=== PATIENT | male | born 1935 | race Caucasian/White ===

== ENCOUNTER → 2018-09-15 | Outpatient (CLI) | payer OTHER | LOC: CARD 11:03 | PROVIDERS: ATTEND Internal Medicine Cardiovascular Disease | DX: I48.0 Paroxysmal atrial fibrillation (principal); I10 Essential (primary) hypertension; E66.9 Obesity, unspecified | CPT/HCPCS: 93306 ==

== ENCOUNTER 2018-09-24 09:10 | Day surgery (SDC) | payer OTHER ==
[2018-09-24] VITALS (10 sets, daily range): BP systolic 145–192; BP diastolic 98–118
[~2018-09-24] VITALS: Ht 172.7 cm; Wt 102.5 kg
[2018-09-24] MEDS ORDERED: NS IV 1000 ML 1,000 ML ONE (09:32)
[2018-09-24] MEDS ORDERED: LIDOCAINE 1% INJ 20 ML 20 ML VIAL ONE (09:32)
[2018-09-24] MEDS ORDERED: HEParin (CATH LAB) 2,000 ML IV ONE (09:32)
[2018-09-24 10:06] LABS: HEMOGLOBIN 15.4 G/DL (13.3-17.7); RED BLOOD COUNT 4.86 10^6/uL (4.35-5.85); RED CELL DISTRIBUTION WIDTH 14.3 % (10.0-14.5); WHITE BLOOD COUNT 7.5 10^3/uL (4.3-11.0)
--- NOTE | 2018-09-24 10:14 | Cardiac Procedure Note-CS/ASA ---
Pre-Procedure Note Pre-Op Procedure Note H&P Reviewed The H&P was reviewed, patient examined and no changes noted. Date H&P Reviewed: Sep 24, 2018 Time H&P Reviewed: 10:13 Conscious Sedation Pre-Proced Time 10:13 ASA Score 3 For ASA 3 and 4: Consider anesthesia and medical clearance. Also, for patients with a history of failed moderate sedation consider anesthesia. Airway Lungs Heart ASA score ASA 1: a normal healthy patient ASA 2: a patient with a mild systemic disease (mid diabetes, controlled hypertension, obesity x ASA 3: a patient with a severe systemic disease that limits activity (angina , COPD, prior Myocardial infarction) ASA 4: a patient with an incapacitating disease that is a constant threat to life (CHF, renal failure) ASA 5: a moribund patient not expected to survive 24 hrs. (ruptured aneurysm) ASA 6: a declared brain patient whose organs are being harvested. For emergent operations, add the letter E after the classification Mallampati Classification Grade 3 Sedation Plan Analgesia, Amnesia, Plan communicated to team members, Discussed options with patient/fam, Discussed risks with patient/fam The patient is an appropriate candidate to undergo the planned procedure, sedation, and anesthesia. The patient immediately re-assessed prior to indication. BRIT CHIRINOS MD Sep 24, 2018 10:14
[2018-09-24] MEDS ORDERED: NS IV 1000 ML 1,000 ML IV ONE (10:15)
[2018-09-24 10:16] LABS: INR 1.2 (0.8-1.4); PROTHROMBIN TIME PATIENT 15.3 SEC (12.2-14.7)
[2018-09-24] MEDS ORDERED: MIDAZOLAM 5 MG/5 ML (VERSED) VIAL ONE (10:18)
[2018-09-24] MEDS ORDERED: fentaNYL INJECTION 100 MCG/2 ML AMP ONE (10:18)
[2018-09-24 10:23] LABS: ALBUMIN 3.8 GM/DL (3.2-4.5); BILIRUBIN,TOTAL 1.3 MG/DL (0.1-1.0); CALCIUM 9.8 MG/DL (8.5-10.1); CREATININE SERUM 1.37 MG/DL (0.60-1.30); TOTAL PROTEIN 6.8 GM/DL (6.4-8.2)
[2018-09-24] MEDS ORDERED: TERA5CAP3 PO (10:30)
[2018-09-24] MEDS ORDERED: METO-387 PO (10:31)
[2018-09-24] MEDS ORDERED: OMG1KC PO (10:31)
[2018-09-24] MEDS ORDERED: LOSA1TAB20 PO (10:31)
[2018-09-24] MEDS ORDERED: APIX5TAB PO (10:32)
--- NOTE | 2018-09-24 10:45 | Diagnostic Imaging Report ---
INDICATION: Chest pain Portable chest 10:20 AM Heart size and pulmonary vascularity are normal. Lungs are clear. There are no effusions or pneumothoraces. IMPRESSION: Negative chest Dictated by: Dictated on workstation # [id number]
[2018-09-24] MEDS ORDERED: NS IV 1000 ML 1,000 ML IV SCH (11:04)
--- NOTE | 2018-09-24 11:08 | Cardiac Cath Report ---
Cardiac Cath Report Physician (s)/Bread Panner (s) Physician BRIT CHIRINOS MD Pre-Procedure Diagnosis Pre-Procedure Diagnosis: coronary artery disease Post-Procedure Note Procedure Start Date: Sep 24, 2018 Name of Procedure: left heart catheterization Findings/Procedure Note PROCEDURE NOTE: After explaining the procedure to the patient, all pros and cons were explained , all questions were answered. The patient signed the consent and then he was placed on the cardiac catheterization laboratory. Groin was prepped SL fashion local anesthesia was used. Sheath placed in the right femoral artery. Mark right and left catheter were used to access the coronary system. Pigtail was used to access the left ventricular cavity. Left ventriculogram was not done, pressure was measured At the end of the procedure the sheath was removed. Closure device was used FINDINGS: Hemodynamics LV 168/30, end-diastolic pressure of 30 Aorta 175/115 mean of 114 ANATOMY: Left Main is free of obstructive disease Left Anterior Descending has mild ectasia proximally with no obstructive disease Left Circumflex has mild ectasia with no obstructive disease, slow flow due to small vessel disease Right Coronory Artery has mild ectasia with slow flow due to small vessel disease CONCLUSION: 1. Mild diffuse coronary ectasia with slow flow due to small vessel disease, nonobstructive disease 2. Elevated left ventricular end-diastolic pressure DISCUSSION AND RECOMMENDATION: Medical therapy is recommended no intervention is needed Anesthesia Type: Conscious Sedation Estimated blood loss (mL): 15 ml Contrast Amount: 24 ml Total Radiation Dose: 633 mGy Post-Procedure Diagnosis Post-operative diagnosis: Coronary artery disease Congestive heart failure, chronic compensated left ventricular systolic dysfunction, nonischemic cardiomyopathy Hypertension Hyperlipidemia BRIT CHIRINOS MD Sep 24, 2018 11:08 am
--- NOTE | 2018-09-24 11:10 | Discharge Inst-Post CATH ---
Discharge Inst-CATH Post Cardiac Cath D/C Inst Follow Up/Plan Appointment with Dr Valencia's office in 2-4 weeks CARDIAC CATH DISCHARGE INSTRUCTIONS *Hold Metformin for 48 hours post heart cath. ACTIVITY * Go Home directly and rest. * Limit activity of the leg (or wrist if it was used) for 7 days including aerobics, swimming, jogging, bicycling, etc. * Restrict stair-climbing for 7 days if possible, if not, climb up with your non -cath leg, then bring together on the same step. * Avoid lifting, pushing, pulling or excessive movement of the affected extremity for 7 days. * Customary sexual activity may be resumed after 2 days-use caution not to use a position that strains or causes pain to the affected extremity. * No driving for 24 hours. * NO SMOKING. * Avoid straining for bowel movements for 7 days. * Gentle walking on level ground is allowed. * Returning to work will depend on the type of procedure and the results. Your doctor will discuss this with you. CALL YOUR DOCTOR FOR ANY OF THE FOLLOWING: *If bleeding from the puncture site occurs- Apply gentle pressure to site with clean cloth and call your doctor or EMS. * If a knot or lump forms under the skin, increases in size, or causes pain. * If bruising appears to be worsening or moving further down your leg instead of disappearing. * Temperature above 101 F. CARE OF YOUR GROIN INCISION; * Bruising or purple discoloration of the skin near the puncture site is common. * You may shower only, no bathtub bathing for 5 days. Be careful to avoid slipping as your leg may feel stiff. * If a closure device was used on your femoral artery, please see the attached guide regarding care of the device and your leg. * Leave the dressing on, until removed by office staff. CARE OF YOUR WRIST INCISION; * Bruising or purple discoloration of the skin near the puncture site is common. * You may shower. * DO NOT submerge wrist. * Leave dressing on, until removed by office staff.. BRIT VALENCIA MD Sep 24, 2018 11:10
[2018-09-24] MEDS ORDERED: PATIENT MAY USE OWN MEDS, ALL PO SCH (11:15)
== END 2018-09-24 15:30 | disposition home or self-care (01) ==
LOC: CATH 09:10 → SDC 11:37 → CATH 15:30
PROVIDERS: ATTEND Internal Medicine Cardiovascular Disease
DX: I25.10 Atherosclerotic heart disease of native coronary artery without angina pectoris (principal); I11.0 Hypertensive heart disease with heart failure; I50.22 Chronic systolic (congestive) heart failure; E78.5 Hyperlipidemia, unspecified; I48.91 Unspecified atrial fibrillation; Z79.01 Long term (current) use of anticoagulants; E66.9 Obesity, unspecified; Z68.34 Body mass index [BMI] 34.0-34.9, adult
CPT/HCPCS: 36415; 36430; 71045; 80053; 80061; 85027; 85610; 85730; 87081; 93005; 93458

== ENCOUNTER 2018-10-17 10:37 | Day surgery (SDC) | payer OTHER ==
[~2018-10-17] VITALS: Ht 172.7 cm; Wt 102.5 kg
[2018-10-17] VITALS (19 sets, daily range): BP systolic 135–188; BP diastolic 84–128
[~2018-10-17 10:37] MED LIST: APIX5TAB PO; LOSA1TAB20 PO; METO-387 PO; OMG1KC PO; TERA5CAP3 PO
[2018-10-17] MEDS ORDERED: NS IV 1000 ML 1,000 ML ONE (10:46)
[2018-10-17] MEDS ORDERED: LIDOCAINE 2% VISCOUS 15 ML UDC ONE (10:46)
[2018-10-17] MEDS: NS IV 1000 ML 1,000 ML IV SCH ×2 (11:30→21:15)
--- NOTE | 2018-10-17 11:35 | Diagnostic Imaging Report ---
INDICATION: Pre-heart catheterization. TIME OF EXAM: 11:26 AM COMPARISON: Correlation is made with prior chest from 09/24/2018. FINDINGS: The heart is enlarged. Lungs appear to be clear. No infiltrate or failure is seen. No effusion or pneumothorax is identified. IMPRESSION: Cardiomegaly. No other significant abnormality is detected. Dictated by: Dictated on workstation # [id number]
[2018-10-17] MEDS ORDERED: FURO20TA4 PO (11:37)
[2018-10-17] MEDS ORDERED: POTA-51 PO (11:37)
[2018-10-17] MEDS ORDERED: METO-370 PO (11:37)
[2018-10-17] MEDS ORDERED: ASPI-983 PO (11:37)
[2018-10-17 11:46] LABS: HEMOGLOBIN 14.3 G/DL (13.3-17.7); MEAN PLATELET VOLUME 11.3 FL (7.4-10.4); RED BLOOD COUNT 4.6 10^6/uL (4.35-5.85); RED CELL DISTRIBUTION WIDTH 14.2 % (10.0-14.5)
[2018-10-17] MEDS ORDERED: proPOfol 200 MG/20 ML (DIPRIVAN) VIAL IV ONE (11:51)
[2018-10-17] MEDS ORDERED: MIDAZOLAM 2 MG/2 ML (VERSED) VIAL ONE (11:51)
[2018-10-17 12:05] LABS: INR 1.2 (0.8-1.4); PROTHROMBIN TIME PATIENT 14.9 SEC (12.2-14.7)
[2018-10-17 12:06] LABS: ALBUMIN 3.8 GM/DL (3.2-4.5); BILIRUBIN,TOTAL 1.1 MG/DL (0.1-1.0); CALCIUM 9.8 MG/DL (8.5-10.1); CREATININE SERUM 1.42 MG/DL (0.60-1.30); POTASSIUM 3.9 MMOL/L (3.6-5.0); TOTAL PROTEIN 6.4 GM/DL (6.4-8.2)
--- NOTE | 2018-10-17 12:20 | Cardiac Procedure Note-CS/ASA ---
Pre-Procedure Note Pre-Op Procedure Note H&P Reviewed The H&P was reviewed, patient examined and no changes noted. Date H&P Reviewed: Oct 17, 2018 Time H&P Reviewed: 12:20 Conscious Sedation Pre-Proced Time 12:20 ASA Score 3 For ASA 3 and 4: Consider anesthesia and medical clearance. Also, for patients with a history of failed moderate sedation consider anesthesia. Airway Lungs Heart ASA score ASA 1: a normal healthy patient ASA 2: a patient with a mild systemic disease (mid diabetes, controlled hypertension, obesity x ASA 3: a patient with a severe systemic disease that limits activity (angina , COPD, prior Myocardial infarction) ASA 4: a patient with an incapacitating disease that is a constant threat to life (CHF, renal failure) ASA 5: a moribund patient not expected to survive 24 hrs. (ruptured aneurysm) ASA 6: a declared brain patient whose organs are being harvested. For emergent operations, add the letter E after the classification Mallampati Classification Grade 3 Sedation Plan Analgesia, Amnesia, Plan communicated to team members, Discussed options with patient/fam, Discussed risks with patient/fam The patient is an appropriate candidate to undergo the planned procedure, sedation, and anesthesia. The patient immediately re-assessed prior to indication. BRIT CHIRINOS MD Oct 17, 2018 12:20
[2018-10-17] MEDS ORDERED: MIDAZOLAM 2 MG/2 ML (VERSED) VIAL IVP ONE (12:40)
--- NOTE | 2018-10-17 12:53 | Cardioversion ---
Cardioversion PROCEDURE PHYSICIAN: Brit Valencia DATE OF PROCEDURE: 10/17/18 DIRECT EXTERNAL ELECTRICAL CARDIOVERSION: Indications: Atrial Fibrillation Preoperative diagnoses: Atrial Fibrillation Postoperative diagnosis: Sinus rhythm, Successful Electrical Cardioversion Anesthesia: By Anesthesia services Complications: None Specimen: None Flouroscopy: none Procedure Details: The patient was brought the geophysical laboratory director after informed consent was taken, all the risks and complications were explained including the risk of stroke. Electrical cardioversion was carried out with anesthesia support with propofol. 200 joules of synchronized shock was delivered through external patches which promptly restored sinus rhythm. The patient tolerated the procedure well. Conclusions: Successful cardioversion in terminating atrial fibrillation Final Diagnosis: Atrial fibrillation Congestive heart failure, chronic compensated LV systolic dysfunction, non ischemic cardiomyopathy Hypertension Hyperlipidemia BRIT VALENCIA MD Oct 17, 2018 12:53
[2018-10-17] MEDS ORDERED: ENOXAPARIN 100 MG/1 ML (LOVENOX) SYR ONE (12:57)
[2018-10-17] MEDS ORDERED: FUROSEMIDE 40 MG/4 ML INJ (LASIX) IVP SCH (13:00)
[2018-10-17] MEDS ORDERED: ENOXAPARIN 100 MG/1 ML (LOVENOX) SYR SC ONE (13:00)
[2018-10-17] MEDS ORDERED: LIDOCAINE 2% VISCOUS 15 ML UDC PO ONE (13:00)
[2018-10-17] MEDS ORDERED: FUROSEMIDE 40 MG/4 ML INJ (LASIX) ONE (13:15)
--- NOTE | 2018-10-17 13:24 | Anesthesia-Procedure Note ---
Procedures/Interventions Procedure Start/Stop/Diagnosis Date of Procedure: Oct 17, 2018 Start Time: 12:30 Stop Time: 12:45 CARA/Cardioversion Anesthesia Type: MAC ASA Class: 3 Medications Versed 2mg IV, propofol 40 mg IV Monitors and Equipment: BP Cuff - Right, Continuous EKG, End Tidal CO2, IV, Pulse Oximeter CHUCK LAO CRNA Oct 17, 2018 13:24
[2018-10-17] MEDS: FUROSEMIDE 40 MG/4 ML INJ (LASIX) IVP SCH (18:04)
[2018-10-17] MEDS: OMEGA 3 (FISH OIL) 1000 MG CAP PO SCH (20:08)
[2018-10-17] MEDS: SACUBITRIL/VALSARTAN 24/26 MG (ENTRESTO) TABLET PO SCH (20:08)
[2018-10-17] MEDS: APIXABAN 5 MG (ELIQUIS) TABLET PO SCH (20:09)
[2018-10-18] VITALS (18 sets, daily range): BP systolic 116–176; BP diastolic 60–109
[2018-10-18 03:33] LABS: MEAN PLATELET VOLUME 11.5 FL (7.4-10.4); RED BLOOD COUNT 4.53 10^6/uL (4.35-5.85); RED CELL DISTRIBUTION WIDTH 14.4 % (10.0-14.5); WHITE BLOOD COUNT 5.9 10^3/uL (4.3-11.0)
[2018-10-18 03:58] LABS: ALBUMIN 3.7 GM/DL (3.2-4.5); BILIRUBIN,TOTAL 0.9 MG/DL (0.1-1.0); CALCIUM 9.7 MG/DL (8.5-10.1); CREATININE SERUM 1.47 MG/DL (0.60-1.30); POTASSIUM 3.6 MMOL/L (3.6-5.0); TOTAL PROTEIN 6.3 GM/DL (6.4-8.2)
[2018-10-18] MEDS: FUROSEMIDE 40 MG/4 ML INJ (LASIX) IVP SCH ×2 (06:22→16:54)
[2018-10-18] MEDS: KCL 20 MEQ TAB (K-DUR) PO SCH (06:22)
--- NOTE | 2018-10-18 07:49 | Cardiology History & Physical ---
HPI-Cardiology Cardiology Consultation Date of Consultation 10/18/18 Date of Admission Time Seen by Provider: 07:43 Indication: atrial fibrillation, congestive heart failure HPI 82 years old gentleman with history of [id number] coronary artery disease , had atrial fibrillation, has been on oral anticoagulation, seen in my office and has been complaining of worsening shortness of breath, significant pedal edema. Deterioration in condition. I scheduled him for CARA and electrical cardioversion, underwent the procedure yesterday and it was successful, it appear that he is in advanced heart failure with ejection fraction 30-35 percent. I admitted him one started him on aggressive diuresis, he has been responding well. Reporting improvement, still having significant edema. He still having frequent atrial and ventricular premature contractions, significant ectopy predisposing him to going back to atrial fibrillation. I visited with him today and decided to keep him another day with aggressive diuresis and start him on amiodarone. PMH-Cardiology Immunizations Up To Date Date of Pneumonia Vaccine: Jul 03, 2018 Date of Influenza Vaccine: Jul 25, 2018 Neurological TIA Social History Patient Social History Marrital Status: Employed/Student: retired Alcohol Use: Denies Use Smoking: Never smoker Recent Foreign Travel: No Contact w/other who traveled: No Recent Infectious Disease Expo: No Family Hx Other noncontributory to his current condition ROS-Cardiology Review of Systems General: No Chills, No Night Sweats; Fatigue, Malaise; No Appetite HEENT: No Head Aches, No Visual Changes, No Eye Pain, No Ear Pain, No Dysphasia , No Sinus Congestion, No Post Nasal Drip, No Sore Throat Pulmonary: Dyspnea; No Cough, No Pleuritic Chest Pain Cardiovascular: Edema; No: Chest Pain, Palpitations, Orthopnea, Paroxysmal Noc. Dyspnea, Lt Headedness Gastrointestinal: No: Nausea, Vomiting, Abdominal Pain, Diarrhea, Constipation , Melena, Hematochezia Genitourinary: No Dysuria, No Frequency, No Incontinence, No Hematuria, No Retention Musculoskeletal: No: neck pain, shoulder pain, arm pain, back pain, hand pain, leg pain, foot pain Neurological: No: Weakness, Numbness, Incoordination, Change in speech, Confusion, Seizures Home Medications & Allergies Allergies: Coded Allergies: No Known Drug Allergies (Unverified , 09/24/18) Home Medication List Reviewed: Yes Exam-Cardiology Vital Signs Vital Signs Date Time Temp Pulse Resp B/P (MAP) Pulse Ox O2 Delivery O2 Flow Rate FiO2 10/18/18 04:00 Room Air 10/18/18 04:00 53 14 165/96 (119) 96 10/18/18 04:00 97.8 10/17/18 13:05 2.00 Exam General Appearance: Alert, Oriented X3, Cooperative, No Acute Distress HEENT: Atraumatic, PERRLA Respiratory: Normal Air Movement, Other (bilateral rhonchi) Cardiovascular: Normal S1, Normal S2, Other (irregular rate, S3 present, systolic murmur, gallop) Abdominal: Normal Bowel Sounds, Soft, No Tenderness, No Hepatosplenomegaly, No Masses Extremities: No Clubbing, No Cyanosis, Normal Pulses, No Tenderness/Swelling, Other (+3 pedal edema) Skin: No Significant Lesion, Other (rash and blisters on his feet) Neuro: Normal Gait, Normal Speech, Strength at 5/5 X4 Ext, Normal Tone, Sensation Intact Psych/Mental Status: Mental Status NL, Mood NL Results Labs Labs Laboratory Tests 10/17/18 11:30: White Blood Count 6.0, Red Blood Count 4.60, Hemoglobin 14.3, Hematocrit 46, Mean Corpuscular Volume 99, Mean Corpuscular Hemoglobin 31, Mean Corpuscular Hemoglobin Concent 31L, Red Cell Distribution Width 14.2, Platelet Count 127L, Mean Platelet Volume 11.3H, Prothrombin Time 14.9H, INR Comment 1.2, Activated Partial Thromboplast Time 33, Sodium Level 139, Potassium Level 3.9, Chloride Level 102, Carbon Dioxide Level 26, Anion Gap 11, Blood Urea Nitrogen 23H, Creatinine 1.42H, Estimat Glomerular Filtration Rate 48, BUN/Creatinine Ratio 16 , Glucose Level 99, Calcium Level 9.8, Corrected Calcium 10.0, Total Bilirubin 1.1H, Aspartate Amino Transf (AST/SGOT) 25, Alanine Aminotransferase (ALT/SGPT) 24, Alkaline Phosphatase 45, Total Protein 6.4, Albumin 3.8 10/18/18 03:05: White Blood Count 5.9, Red Blood Count 4.53, Hemoglobin 14.0, Hematocrit 45, Mean Corpuscular Volume 99, Mean Corpuscular Hemoglobin 31, Mean Corpuscular Hemoglobin Concent 31L, Red Cell Distribution Width 14.4, Platelet Count 130, Mean Platelet Volume 11.5H, Sodium Level 142, Potassium Level 3.6, Chloride Level 102, Carbon Dioxide Level 29, Anion Gap 11, Blood Urea Nitrogen 28H, Creatinine 1.47H, Estimat Glomerular Filtration Rate 46, BUN/Creatinine Ratio 19 , Glucose Level 107H, Calcium Level 9.7, Corrected Calcium 9.9, Total Bilirubin 0.9, Aspartate Amino Transf (AST/SGOT) 22, Alanine Aminotransferase (ALT/SGPT) 21, Alkaline Phosphatase 49, Total Protein 6.3L, Albumin 3.7, B-Type Natriuretic Peptide 1331.2H A/P-Cardiology Admission Diagnosis Congestive heart failure, acute left ventricular systolic dysfunction, nonischemic cardiomyopathy Chronic atrial fibrillation Hypertension Peripheral edema Admission Status: Observation Assessment/Plan Congestive heart failure, acute left ventricular systolic dysfunction with ejection fraction 30-35 percent, nonischemic cardiomyopathy, probably secondary to atrial fibrillation, converted to sinus rhythm after CARA yesterday, will continue with aggressive treatment and monitor his tolerance and response Paroxysmal atrial fibrillation, status post CARA with electrical cardioversion, patient was intolerant to beta blockers with fatigue and loss of energy. Still having significant ectopy, I will start him on amiodarone at this time. Monitor tolerance and response. Had a long discussion about the use of oral anticoagulation, patient is concerned because of the frequent nosebleed and blister on his legs. He agreed to continue on medication for short term Coronary artery disease, nonobstructive coronary artery disease per cardiac catheterization done in August 2018. Peripheral edema, secondary to heart failure, patient had blister on his legs, concern about side effect of medication. Responding well to diuretics. Continue to monitor [id number] score of 3, yearly risk of stroke without oral anticoagulation is 3.2 percent, continue on Eliquis and monitor Hypertension, elevated blood pressure today, Continue to monitor Lipid profile was done on August 08, 2018 showing total cholesterol 229, triglyceride 212, LDL 142, HDL 44. I am starting on fish oil tablets and reevaluate lipid profile BRIT CHIRINOS MD Oct 18, 2018 07:49
[2018-10-18] MEDS ORDERED: AMIODARONE FOR BOLUS 150 MG in D5W 100 ML IVPB 100 ML IV ONE (08:00)
[2018-10-18] MEDS ORDERED: meTOproloL SUCCINATE 50 MG (TOPROL XL) TAB PO SCH (09:00)
[2018-10-18] MEDS ORDERED: NON-FORMULARY MEDICATION 1 EA EA (Terazosin HCl 5 MG) PO SCH (09:00)
[2018-10-18] MEDS ORDERED: FUROSEMIDE 20 MG (LASIX) TAB PO SCH (09:00)
[2018-10-18] MEDS ORDERED: NON-FORMULARY MEDICATION 1 EA EA (Potassium Chloride 20 MEQ) PO SCH (09:00)
[2018-10-18] MEDS: AMIODARONE 200 MG (CORDARONE) TAB PO SCH ×2 (09:16→19:45)
[2018-10-18] MEDS: OMEGA 3 (FISH OIL) 1000 MG CAP PO SCH ×2 (09:16→20:25)
[2018-10-18] MEDS: ASPIRIN E.C. 81 MG (ECOTRIN) TAB PO SCH (09:16)
[2018-10-18] MEDS: TERAZOSIN 5 MG (HYTRIN) CAPSULE PO SCH (09:16)
[2018-10-18] MEDS: SACUBITRIL/VALSARTAN 24/26 MG (ENTRESTO) TABLET PO SCH ×2 (09:16→20:25)
[2018-10-18] MEDS: AMIODARONE INJECTION 450 MG in D5W IV SOLUTION (EXCEL) 250 ML IV SCH ×2 (09:25→18:09)
[2018-10-18] MEDS: APIXABAN 5 MG (ELIQUIS) TABLET PO SCH ×2 (10:38→20:25)
[2018-10-18] MEDS: NS IV 1000 ML 1,000 ML IV SCH ×2 (16:50→20:26)
[2018-10-19] VITALS (9 sets, daily range): BP systolic 131–155; BP diastolic 75–90
[2018-10-19 04:45] LABS: ALBUMIN 3.4 GM/DL (3.2-4.5); BILIRUBIN,TOTAL 1.1 MG/DL (0.1-1.0); CALCIUM 9.3 MG/DL (8.5-10.1); CREATININE SERUM 1.44 MG/DL (0.60-1.30); POTASSIUM 3.3 MMOL/L (3.6-5.0); TOTAL PROTEIN 5.8 GM/DL (6.4-8.2)
[2018-10-19] MEDS: KCL 20 MEQ TAB (K-DUR) PO SCH (05:50)
[2018-10-19] MEDS: FUROSEMIDE 40 MG/4 ML INJ (LASIX) IVP SCH (05:50)
[2018-10-19] MEDS ORDERED: POTASSIUM CL 10 MEQ/50 ML IVPB (PRE-MIX) IV SCH (07:45)
[2018-10-19] MEDS: OMEGA 3 (FISH OIL) 1000 MG CAP PO SCH (08:23)
[2018-10-19] MEDS: ASPIRIN E.C. 81 MG (ECOTRIN) TAB PO SCH (08:23)
[2018-10-19] MEDS: APIXABAN 5 MG (ELIQUIS) TABLET PO SCH (08:23)
[2018-10-19] MEDS: SACUBITRIL/VALSARTAN 24/26 MG (ENTRESTO) TABLET PO SCH (08:24)
[2018-10-19] MEDS: TERAZOSIN 5 MG (HYTRIN) CAPSULE PO SCH (08:24)
[2018-10-19] MEDS: AMIODARONE 200 MG (CORDARONE) TAB PO SCH (08:24)
[2018-10-19] MEDS ORDERED: FURO-124 PO (08:43)
[2018-10-19] MEDS ORDERED: AMIO200T4 PO (08:43)
[2018-10-19] MEDS ORDERED: SACU1TAB PO (08:43)
[2018-10-19] MEDS ORDERED: APIX5TAB PO (08:43)
[2018-10-19] MEDS ORDERED: KCL 20 MEQ TAB (K-DUR) PO ONE (08:45)
--- NOTE | 2018-10-19 08:52 | Cardiology Discharge Summary ---
Diagnosis/Chief Complaint Date of Admission October 17, 2018 Date of Discharge October 19, 2018 Admission Diagnosis Congestive heart failure, acute left ventricular systolic dysfunction, nonischemic cardiomyopathy Chronic atrial fibrillation Hypertension Peripheral edema Discharge Diagnosis Congestive heart failure, acute left ventricular systolic dysfunction, nonischemic cardiomyopathy Chronic atrial fibrillation Sick sinus syndrome Shortness of breath Chief Complaint/HPI Chief Complaint/HPI 82 years old gentleman with history of [id number] coronary artery disease , had atrial fibrillation, has been on oral anticoagulation, seen in my office and has been complaining of worsening shortness of breath, significant pedal edema. Deterioration in condition. I scheduled him for CARA and electrical cardioversion, underwent the procedure yesterday and it was successful, it appear that he is in advanced heart failure with ejection fraction 30-35 percent. I admitted him one started him on aggressive diuresis, he has been responding well. Reporting improvement, still having significant edema. He still having frequent atrial and ventricular premature contractions, significant ectopy predisposing him to going back to atrial fibrillation. I visited with him today and decided to keep him another day with aggressive diuresis and start him on amiodarone. Patient has diuresed well over 5 L of fluid during the hospitalization, responded well to IV Lasix, still having significant edema and requesting to go home, BNP has improved from 1300 to 300, he was unable to tolerate beta blockers due to underlying sick sinus syndrome and severe bradycardia. Tolerating amiodarone well. Discharge Summary Hospital Course Hospital Course Congestive heart failure, acute left ventricular systolic dysfunction with ejection fraction 30-35 percent, nonischemic cardiomyopathy, probably secondary to atrial fibrillation, converted to sinus rhythm after CARA yesterday, BNP was 1300, today it has improved to 300, diuresed about 5 L during hospitalization in the past 48 hours. I will continue on Lasix 40 mg twice today, started on Entresto. Unable to tolerate beta marshal due to bradycardia Paroxysmal atrial fibrillation, status post CARA with electrical cardioversion, patient was intolerant to beta blockers with fatigue and loss of energy. Still having significant ectopy, started on amiodarone, I will continue on oral amiodarone and monitor closely.next Hypokalemia, I gave him additional 40 mEq of potassium today Coronary artery disease, nonobstructive coronary artery disease per cardiac catheterization done in August 2018. Continue to monitor Peripheral edema, secondary to heart failure, patient had blister on his legs, concern about side effect of medication. Responding well to diuretics. Continue to monitor as an outpatient [id number] score of 3, yearly risk of stroke without oral anticoagulation is 3.2 percent, continue on Eliquis and monitor, patient is still hesitant to take Eliquis at this time Hypertension, better controlled. Continue to monitor blood pressure Status post acute renal failure, renal function are improving. Continue to monitor Lipid profile was done on August 08, 2018 showing total cholesterol 229, triglyceride 212, LDL 142, HDL 44. started on fish oil. Continue to monitor Patient is scheduled to see me next week and I will evaluate metabolic profile and BNP Labs Laboratory Tests 10/17/18 11:30: Mean Corpuscular Hemoglobin Concent 31L, Platelet Count 127L, Mean Platelet Volume 11.3H, Prothrombin Time 14.9H, Blood Urea Nitrogen 23H, Creatinine 1.42H , Total Bilirubin 1.1H 10/18/18 03:05: Mean Corpuscular Hemoglobin Concent 31L, Mean Platelet Volume 11.5H, Blood Urea Nitrogen 28H, Creatinine 1.47H, Glucose Level 107H, B-Type Natriuretic Peptide 1331.2H, Total Protein 6.3L 10/19/18 04:00: Blood Urea Nitrogen 29H, Creatinine 1.44H, Total Bilirubin 1.1H, B-Type Natriuretic Peptide 386.8H, Total Protein 5.8L, Potassium Level 3.3L, Alkaline Phosphatase 39L Procedures None. Discharge Physical Examination Allergies: Coded Allergies: No Known Drug Allergies (Unverified , 09/24/18) Vitals & I&Os Vital Signs Date Time Temp Pulse Resp B/P (MAP) Pulse Ox O2 Delivery O2 Flow Rate FiO2 10/19/18 08:00 98.5 10/19/18 08:00 96 Room Air 10/19/18 07:00 42 10/19/18 06:00 18 143/90 (107) 10/17/18 13:05 2.00 General Appearance: Alert, Oriented X3, Cooperative, No Acute Distress HEENT: Atraumatic, PERRLA Respiratory: Clear to Auscultation, Normal Air Movement Cardiovascular: Normal S1, Normal S2, No Murmurs, Other (bradycardia, S3 is present) Abdominal: Normal Bowel Sounds, Soft, No Tenderness, No Hepatosplenomegaly, No Masses Extremities: No Clubbing, No Cyanosis, Normal Pulses, No Tenderness/Swelling, Other (+2-3 pedal edema) Skin: No Significant Lesion, Other (erythema on the legs and blisters secondary to edema) Neuro: Normal Gait, Normal Speech, Strength at 5/5 X4 Ext, Normal Tone, Sensation Intact, Cranial Nerves 3-12 NL, Reflexes 2+ Psych/Mental Status: Mental Status NL, Mood NL Discharge Home Medications Reviewed and agree with Discharge Medication list on patient's Discharge Instruction sheet Instructions to Patient/Family Please see electronic discharge instructions given to patient. Clinical Quality Measures Admission Status Admission Status: Inpatient Order (span 2 midnights) Reason for Inpatient Admission: patient has congestive heart failure required IV Lasix Atrial fibrillation status post cardioversion that required amiodarone drip with bradycardia that required monitoring over 24 hours and I stopped beta blockers AMI/AHF: Ejection Fraction: <40 (THIAGO/ARB Indicated) D/C Medications Addressed: Angiotension receptor marshal, Beta marshal Reason Beta-Marshal not given: Allery or Intolerance Reason Statin not given: Other (started on fish oil, will monitor lipids) ASA Given prior to admit: Yes DVT/VTE Risk/Contraindication: VTE Addressed: Yes (patient is on Eliquis) BRIT CHIRINOS MD Oct 19, 2018 08:51
== END 2018-10-19 10:10 | disposition home or self-care (01) ==
LOC: CATH 10:37 → ICU 13:36 → CATH 10-19 10:10
PROVIDERS: ATTEND Internal Medicine Cardiovascular Disease
DX: I48.2 Chronic atrial fibrillation (principal); I49.5 Sick sinus syndrome; I11.0 Hypertensive heart disease with heart failure; I50.21 Acute systolic (congestive) heart failure; I42.9 Cardiomyopathy, unspecified; I25.10 Atherosclerotic heart disease of native coronary artery without angina pectoris; E87.6 Hypokalemia; R06.02 Shortness of breath; R60.0 Localized edema; Z79.01 Long term (current) use of anticoagulants; Z79.899 Other long term (current) drug therapy
CPT/HCPCS: 36415; 71045; 80053; 83880; 84443; 85027; 85610; 85730; 87081; 92960; 93005; 93312; 93320; 93325

== ENCOUNTER 2018-10-22 10:58 | Emergency (ER) | payer OTHER ==
[~2018-10-22] VITALS: Ht 172.7 cm; Wt 95.3 kg
[~2018-10-22 10:58] MED LIST changes: +AMIO200T4 PO; +ASPI-983 PO; +FURO-124 PO; +FURO20TA4 PO; +METO-370 PO; +POTA-51 PO; +SACU1TAB PO
[2018-10-22] MEDS ORDERED: TRANEXAMIC ACID 100 MG/ML 10 ML INJECTION IV ONE (11:14)
--- NOTE | 2018-10-22 11:15 | ED EENT ---
History of Present Illness General Chief Complaint: Nasal Problems Stated Complaint: NOSE BLEED Source: patient Exam Limitations: no limitations History of Present Illness Date Seen by Provider: Oct 22, 2018 Time Seen by Provider: 11:05 Initial Comments Patient is an 82-year-old male who is brought into the emergency room by [facility] for epistaxis that started 1 hour prior to arrival. He was recently admitted to the hospital one week ago for A. fib requiring cardioversion and was placed on Eliquis after. He has been on Eliquis in the past has had several nosebleeds due to the blood thinner. Denies any trauma to the nose but reports that when he woke up this morning he blew his nose causing the nosebleed. He is not currently bleeding that he has a visible large clot in the left nostril. Timing/Duration: this morning Location: nose Prearrival Treatment: squeezing nostrils Associated Symptoms: denies symptoms Allergies and Home Medications Allergies Coded Allergies: No Known Drug Allergies (Unverified , 09/24/18) Home Medications Amiodarone HCl 200 Mg Tablet, 200 MG PO BID Prescribed by: BRIT CHIRINOS on 10/19/18 0843 Apixaban 5 Mg Tablet, 5 MG PO BID Prescribed by: BRIT CHIRINOS on 10/19/18 0843 Furosemide 40 Mg Tablet, 40 MG PO BID Prescribed by: BRIT CHIRINOS on 10/19/18 0843 [place] 3 Polyunsat Fatty Acids 1,000 Mg Cap, 1,000 MG PO BID, (Reported) Potassium Chloride 20 Meq Tablet.er, 20 MEQ PO DAILY, (Reported) Sacubitril/Valsartan 1 Each Tablet, 1 TAB PO BID Prescribed by: BRIT CHIRINOS on 10/19/18 0843 Terazosin HCl 5 Mg Capsule, 5 MG PO DAILY, (Reported) Patient Home Medication List Home Medication List Reviewed: Yes Review of Systems Review of Systems Constitutional: no symptoms reported, see HPI Nose: see HPI, clots, epistaxis All Other Systems Reviewed Negative Unless Noted: Yes Past Npnowfw-Mexqng-Iaafhx Hx Past Med/Social Hx: Reviewed Nursing Past Med/Soc Hx Immunizations Up To Date Date of Pneumonia Vaccine: Jul 03, 2018 Date of Influenza Vaccine: Jul 25, 2018 Past Medical History Tonsillectomy High Cholesterol, Hypertension TIA Family Medical History Reviewed Nursing Family Hx Physical Exam Vital Signs Vital Signs - First Documented 10/22/18 11:00 Temp 97.5 Pulse 60 Resp 18 B/P (MAP) 153/88 (109) Pulse Ox 97 Height, Weight, BMI Height: 5'8.00" Weight: 226lbs. 0.0oz. 102.337393mq; 34.4 BMI Method: General Appearance: WD/WN, no apparent distress Eyes: bilateral eye normal inspection, bilateral eye PERRL, bilateral eye EOMI Ears: bilateral ear auricle normal, bilateral ear canal normal, bilateral ear TM normal Nose: No active bleeding; dried blood, other (blood clot in the left nostril.) Cardiovascular: normal peripheral pulses, regular rate, rhythm, no edema, no gallop, no JVD, no murmur Respiratory: chest non-tender, lungs clear, normal breath sounds, no respiratory distress, no accessory muscle use Neurologic/Psychiatric: alert, normal mood/affect, oriented x 3 Skin: normal color, warm/dry Progress/Results/Core Measures Results/Orders Lab Results Laboratory Tests Test 10/22/18 11:13 Range/Units White Blood Count 4.7 4.3-11.0 10^3/uL Red Blood Count 4.62 4.35-5.85 10^6/uL Hemoglobin 14.6 13.3-17.7 G/DL Hematocrit 46 40-54 % Mean Corpuscular Volume 100 H 80-99 FL Mean Corpuscular Hemoglobin 32 25-34 PG Mean Corpuscular Hemoglobin Concent 32 32-36 G/DL Red Cell Distribution Width 14.5 10.0-14.5 % Platelet Count 133 130-400 10^3/uL Mean Platelet Volume 10.5 H 7.4-10.4 FL Neutrophils (%) (Auto) 70 42-75 % Lymphocytes (%) (Auto) 22 12-44 % Monocytes (%) (Auto) 7 0-12 % Eosinophils (%) (Auto) 1 0-10 % Basophils (%) (Auto) 0 0-10 % Neutrophils # (Auto) 3.3 1.8-7.8 X 10^3 Lymphocytes # (Auto) 1.1 1.0-4.0 X 10^3 Monocytes # (Auto) 0.3 0.0-1.0 X 10^3 Eosinophils # (Auto) 0.1 0.0-0.3 10^3/uL Basophils # (Auto) 0.0 0.0-0.1 10^3/uL Prothrombin Time 16.3 H 12.2-14.7 SEC INR Comment 1.3 0.8-1.4 Activated Partial Thromboplast Time 33 24-35 SEC My Orders Orders - DELILAH LAW Cbc With Automated Diff (10/22/18 11:04) Protime With Inr (10/22/18 11:04) Partial Thromboplastin Time (10/22/18 11:04) Tranexamic Acid Injection (Cyklokapron I (10/22/18 11:14) Vital Signs/I&O 10/22/18 11:00 Temp 97.5 Pulse 60 Resp 18 B/P (MAP) 153/88 (109) Pulse Ox 97 Progress Progress Note : Time: 12:21 Progress Note I have seen and evaluated the patient. I had the patient remove the clots from his nose by blowing. He is still remaining free of epistaxis at this time. I discussed the case with Mamie Maldonado's nurse practitioner and she agrees to see the patient today at 1300 in the office for further evaluation. I have a page out to Dr. Chirinos to contact about 90 seeing the patient's Eliquis. I'm going to let the patient be discharged and I will call him with the decision for Dr. Chirinos's stopping the Eliquis. Departure Impression Primary Impression: Epistaxis Disposition: 01 HOME, SELF-CARE Condition: Stable/Unchanged Departure-Patient Inst. Decision time for Depature: 12:23 Referrals: NO,LOCAL PHYSICIAN (PCP/Family) Primary Care Physician Patient Instructions: Nosebleeds (DC) Add. Discharge Instructions: Go directly to Dr. Maldonado's office to make your appointment with Mamie. Return back to the emergency room for any worsening symptoms or concerns as needed. I will be calling you with Dr. Chirinos's decision on Eliquis. All discharge instructions reviewed with patient and/or family. Voiced understanding. DELILAH LAW Oct 22, 2018 11:14
[2018-10-22 11:19] LABS: BASOPHILS % (AUTO) 0 % (0-10); EOSINOPHILS # (AUTO) 0.1 10^3/uL (0.0-0.3); EOSINOPHILS % (AUTO) 1 % (0-10); HEMATOCRIT 46 % (40-54); HEMOGLOBIN 14.6 G/DL (13.3-17.7); LYMPHOCYTES # (AUTO) 1.1 X 10^3 (1.0-4.0); LYMPHOCYTES % (AUTO) 22 % (12-44); MEAN CORPUSCULAR HEMOGLOBIN 32 PG (25-34); MEAN CORPUSCULAR HGB CONC 32 G/DL (32-36); MEAN CORPUSCULAR VOLUME 100 FL (80-99); MEAN PLATELET VOLUME 10.5 FL (7.4-10.4); MONOCYTES # (AUTO) 0.3 X 10^3 (0.0-1.0); MONOCYTES % (AUTO) 7 % (0-12); NEUTROPHILS # (AUTO) 3.3 X 10^3 (1.8-7.8); NEUTROPHILS % (AUTO) 70 % (42-75); PLATELET COUNT 133 10^3/uL (130-400); RED BLOOD COUNT 4.62 10^6/uL (4.35-5.85); RED CELL DISTRIBUTION WIDTH 14.5 % (10.0-14.5); WHITE BLOOD COUNT 4.7 10^3/uL (4.3-11.0)
[2018-10-22 11:29] LABS: INR 1.3 (0.8-1.4); PROTHROMBIN TIME PATIENT 16.3 SEC (12.2-14.7)
[2018-10-22 12:35] VITALS: BP 153/88
== END 2018-10-22 12:39 | disposition home or self-care (01) ==
LOC: EDUNIT# 10:58 → ER 11:00
DX: R04.0 Epistaxis (principal); I48.91 Unspecified atrial fibrillation; I10 Essential (primary) hypertension; E78.00 Pure hypercholesterolemia, unspecified; Z86.73 Personal history of transient ischemic attack (TIA), and cerebral infarction without residual deficits; Z79.01 Long term (current) use of anticoagulants; Z90.89 Acquired absence of other organs
CPT/HCPCS: 36415; 85025; 85610; 85730

== ENCOUNTER 2018-11-12 00:07 | Emergency (ER) | payer OTHER ==
[~2018-11-12] VITALS: Ht 172.7 cm; Wt 95.3 kg
[2018-11-12] MEDS ORDERED: OXYMETAZOLINE (AFRIN) 0.05% NA 15 ML BTL ONE (00:20)
--- NOTE | 2018-11-12 01:55 | ED EENT ---
History of Present Illness General Chief Complaint: Nasal Problems Stated Complaint: NOSE BLEED Nursing Triage Note: nose bleed Source: patient Exam Limitations: no limitations Allergies and Home Medications Allergies Coded Allergies: No Known Drug Allergies (Unverified , 09/24/18) Home Medications Amiodarone HCl 200 Mg Tablet, 200 MG PO BID Prescribed by: BRIT CHIRINOS on 10/19/18 0843 Furosemide 40 Mg Tablet, 40 MG PO BID Prescribed by: BRIT CHIRINOS on 10/19/18 0843 [place] 3 Polyunsat Fatty Acids 1,000 Mg Cap, 1,000 MG PO BID, (Reported) Potassium Chloride 20 Meq Tablet.er, 20 MEQ PO DAILY, (Reported) Sacubitril/Valsartan 1 Each Tablet, 1 TAB PO BID Prescribed by: BRIT CHIRINOS on 10/19/18 0843 Terazosin HCl 5 Mg Capsule, 5 MG PO DAILY, (Reported) Past Weckdrq-Wucaqz-Reaxdc Hx Patient Social History Alcohol Use: Denies Use Recreational Drug Use: No Smoking Status: Never a Smoker Recent Foreign Travel: No Contact w/Someone Who Travel: No Recent Infectious Disease Expo: No Recent Hopitalizations: No Immunizations Up To Date Tetanus Booster (TDap): Unknown Date of Pneumonia Vaccine: Jul 03, 2018 Date of Influenza Vaccine: Jul 25, 2018 Seasonal Allergies Seasonal Allergies: No Past Medical History Surgeries: Yes Tonsillectomy Respiratory: No Cardiac: Yes Atrial Fibrillation, High Cholesterol, Hypertension Neurological: Yes TIA Genitourinary: No Gastrointestinal: No Musculoskeletal: No Endocrine: No HEENT: No Cancer: No Psychosocial: No Integumentary: No Blood Disorders: No Physical Exam Vital Signs Vital Signs - First Documented 11/12/18 00:15 Temp 97.7 Pulse 76 Resp 18 B/P (MAP) 142/84 (103) Pulse Ox 96 O2 Delivery Room Air Height, Weight, BMI Height: 5'8.00" Weight: 210lbs. 0.0oz. 95.925299vk; 34.4 BMI Method:Stated Progress/Results/Core Measures Results/Orders My Orders Orders - SRAVAN RODRIGUEZ MD Oxymetazoline 0.05% Nasal [place] (Afrin 0. (11/12/18 09:00) Oxymetazoline 0.05% Nasal [place] (Afrin 0. (11/12/18 00:20) Vital Signs/I&O 11/12/18 00:15 Temp 97.7 Pulse 76 Resp 18 B/P (MAP) 142/84 (103) Pulse Ox 96 O2 Delivery Room Air Blood Pressure Mean: 103 Departure Impression Primary Impression: Epistaxis Disposition: 01 HOME, SELF-CARE Condition: Improved Departure-Patient Inst. Referrals: THEE MALDONADO MD, RICK D MD (PCP/Family) Primary Care Physician Patient Instructions: Nosebleeds (DC) Add. Discharge Instructions: Try not to blow your nose or otherwise disrupt your nose for the next 24 hours. Doing so may dislodge the clot that has stopped your bleeding. If your bleeding returns, spray 2-4 sprays of Afrin in each nostril and clamp firmly with your hand for 20 minutes. If this does not control your bleeding, return to the ER or call Dr. Maldonado's office. Please call Dr. Maldonado's office when they opened this morning to arrange follow- up. Sleeping with your head elevated tonight may help prevent recurrence of nosebleed. All discharge instructions reviewed with patient and/or family. Voiced understanding. SRAVAN RODRIGUEZ MD Nov 12, 2018 01:55
[2018-11-12 02:18] VITALS: BP 136/84
[2018-11-12] MEDS ORDERED: OXYMETAZOLINE (AFRIN) 0.05% NA 15 ML BTL SCH (09:00)
== END 2018-11-12 02:17 | disposition home or self-care (01) ==
LOC: EDUNIT# 00:07 → ER 00:09
DX: R04.0 Epistaxis (principal); I48.91 Unspecified atrial fibrillation; E78.00 Pure hypercholesterolemia, unspecified; I10 Essential (primary) hypertension; Z86.73 Personal history of transient ischemic attack (TIA), and cerebral infarction without residual deficits; Z90.89 Acquired absence of other organs

== ENCOUNTER → 2019-01-08 | Outpatient (CLI) | payer OTHER | LOC: CARD 12:12 | PROVIDERS: ATTEND Internal Medicine Cardiovascular Disease | DX: I48.91 Unspecified atrial fibrillation (principal); I11.0 Hypertensive heart disease with heart failure; I50.9 Heart failure, unspecified; I25.10 Atherosclerotic heart disease of native coronary artery without angina pectoris; E66.9 Obesity, unspecified | CPT/HCPCS: 93306 ==

== ENCOUNTER 2019-08-17 08:33 | Outpatient (RCR) | payer OTHER ==
[~2019-08-17 08:33] MED LIST changes: -METO-370 PO; -METO-387 PO; +METO50TA7 PO; +MTP25TSR PO; -SACU1TAB PO; +SACU1TAB2 PO
== END 2019-11-15 | disposition home or self-care (01) ==
LOC: CARD 08:33
PROVIDERS: ATTEND Internal Medicine Cardiovascular Disease
DX: I25.10 Atherosclerotic heart disease of native coronary artery without angina pectoris (principal); I11.0 Hypertensive heart disease with heart failure; I50.22 Chronic systolic (congestive) heart failure; I48.0 Paroxysmal atrial fibrillation

== ENCOUNTER → 2020-01-14 | Outpatient (CLI) | payer OTHER | LOC: CARD 13:28 | PROVIDERS: ATTEND Internal Medicine Cardiovascular Disease | DX: I11.0 Hypertensive heart disease with heart failure (principal); I25.10 Atherosclerotic heart disease of native coronary artery without angina pectoris; I50.22 Chronic systolic (congestive) heart failure; I48.0 Paroxysmal atrial fibrillation; I35.0 Nonrheumatic aortic (valve) stenosis | CPT/HCPCS: 93306 ==

== ENCOUNTER → 2020-06-17 | Outpatient (CLI) | payer OTHER ==
--- NOTE | 2020-06-17 11:03 | Diagnostic Imaging Report ---
INDICATION: Atrial fibrillation. Time of exam: 10:36 AM Correlation is made with prior chest from 10/17/2018. The heart size is normal. The pulmonary vascularity is unremarkable. The lungs are clear. No infiltrate, effusion or pneumothorax is detected. IMPRESSION: No acute cardiopulmonary process is detected. Dictated by: Dictated on workstation # [id number]
== END ==
LOC: RAD 10:01
PROVIDERS: ATTEND Internal Medicine Cardiovascular Disease
DX: I48.91 Unspecified atrial fibrillation (principal); I25.10 Atherosclerotic heart disease of native coronary artery without angina pectoris; I11.0 Hypertensive heart disease with heart failure; I50.9 Heart failure, unspecified
CPT/HCPCS: 71046

== ENCOUNTER → 2021-08-29 | Outpatient (CLI) | payer MEDICARE, OTHER ==
[~2021-08-29] MED LIST changes: -AMIO200T4 PO; +AMIO200T6 PO; +ASPI-1238 PO; -ASPI-983 PO; +TERA5CAP10 PO; -TERA5CAP3 PO
[2021-08-29 14:27] LABS: HEMATOCRIT 51 % (40-54); HEMOGLOBIN 16.2 g/dL (13.3-17.7); MEAN CORPUSCULAR HEMOGLOBIN 32 pg (25-34); MEAN CORPUSCULAR HGB CONC 32 g/dL (32-36); MEAN CORPUSCULAR VOLUME 100 fL (80-99); MEAN PLATELET VOLUME 10.6 fL (9.0-12.2); PLATELET COUNT 144 10^3/uL (130-400); WHITE BLOOD COUNT 8.6 10^3/uL (4.3-11.0)
[2021-08-29 14:53] LABS: ALANINE AMINOTRANSFERASE 9 U/L (0-55); ALBUMIN 3.8 GM/DL (3.2-4.5); ALKALINE PHOSPHATASE 47 U/L (40-136); BILIRUBIN,TOTAL 0.7 MG/DL (0.1-1.0); BUN/CREATININE RATIO 14; CALCIUM 9.5 MG/DL (8.5-10.1); CARBON DIOXIDE 26 MMOL/L (21-32); CHLORIDE 103 MMOL/L (98-107); CHOLESTEROL 201 MG/DL (< 200); CREATININE SERUM 1.46 MG/DL (0.60-1.30); GFR ESTIMATED 46; GLUCOSE 168 MG/DL (70-105); HDL CHOLESTEROL 50 MG/DL (40-60); POTASSIUM 4.3 MMOL/L (3.6-5.0); SODIUM 140 MMOL/L (135-145); TOTAL PROTEIN 6.8 GM/DL (6.4-8.2); TRIGLYCERIDES 104 MG/DL (<150); VLDL CHOLESTEROL 21 MG/DL (5-40)
[2021-08-29 15:33] LABS: CREATINE KINASE 68 U/L (30-200)
== END ==
LOC: LAB 14:04
DX: E78.2 Mixed hyperlipidemia (principal); R53.83 Other fatigue; R07.89 Other chest pain
CPT/HCPCS: 36415; 80053; 80061; 82550; 83874; 84443; 84484; 85027

== ENCOUNTER → 2021-12-20 | Outpatient (CLI) | payer MEDICARE, OTHER ==
[~2021-12-20] MED LIST changes: -AMIO200T6 PO; +AMIO200T65 PO
== END ==
LOC: CARD 10:00
PROVIDERS: ATTEND Internal Medicine Cardiovascular Disease
DX: I35.1 Nonrheumatic aortic (valve) insufficiency (principal); I10 Essential (primary) hypertension
CPT/HCPCS: 93306